=== PATIENT | female | born 1990 | race American Indian/Alaskan Native ===

== ENCOUNTER 2018-07-11 11:23 | Inpatient (IN) | payer OTHER ==
[~2018-07-11] VITALS: Ht 170.2 cm; Wt 91.2 kg
[2018-07-11] MEDS ORDERED: PRENATAL TABLE1 EAC2 PO (11:53)
== END 2018-07-13 11:53 | disposition home or self-care, planned readmission (81) | DRG 807 ==
LOC: OBS/DEL 11:23 → LDR 11:59 → OB/GYN 11:59
PROC: 10E0XZZ Delivery of Products of Conception, External Approach (ICD-10-PCS; principal; 2018-07-11)
PROC: 0UQGXZZ Repair Vagina, External Approach (ICD-10-PCS; 2018-07-11)
PROC: 10907ZC Drainage of Amniotic Fluid, Therapeutic from Products of Conception, Via Natural or Artificial Opening (ICD-10-PCS; 2018-07-11)
PROC: 4A1HXCZ Monitoring of Products of Conception, Cardiac Rate, External Approach (ICD-10-PCS; 2018-07-11)
DX: O71.4 Obstetric high vaginal laceration alone (principal); Z37.0 Single live birth; Z3A.39 39 weeks gestation of pregnancy

== ENCOUNTER 2021-08-12 14:40 | Outpatient (CLI) | payer OTHER ==
[~2021-08-12 14:40] MED LIST: PRENATAL TABLE1 EAC2 PO
== END 2021-08-12 16:15 | disposition home or self-care (01) ==
LOC: PRENATAL 14:40
PROVIDERS: ATTEND Obstetrics & Gynecology Maternal & Fetal Medicine
DX: O35.0XX1 Maternal care for (suspected) central nervous system malformation in fetus, fetus 1 (principal); O35.3XX1 Maternal care for (suspected) damage to fetus from viral disease in mother, fetus 1; O98.512 Other viral diseases complicating pregnancy, second trimester; O99.891 Other specified diseases and conditions complicating pregnancy; Z36.89 Encounter for other specified antenatal screening; Z3A.24 24 weeks gestation of pregnancy

== ENCOUNTER 2021-09-30 16:25 | Emergency (ER) | payer OTHER ==
[~2021-09-30] VITALS: Ht 170.2 cm; Wt 97.1 kg
[2021-09-30] MEDS ORDERED: ACID REDUCER20 M1 (16:55)
[2021-09-30] MEDS ORDERED: PEPCID AC20 MG (16:55)
[2021-09-30] MEDS ORDERED: RHINOCORT ALL8.43 ML (16:56)
[2021-09-30] MEDS ORDERED: CLARITIN10 M1 (16:56)
[2021-09-30] MEDS ORDERED: BUTALB-ACETAMI1 EACH (16:58)
[2021-09-30] MEDS ORDERED: AZELASTINE137 MCG/0. (16:59)
== END 2021-09-30 17:47 | disposition home or self-care (01) ==
LOC: ER 16:25
DX: O22.43 Hemorrhoids in pregnancy, third trimester (principal); Z3A.32 32 weeks gestation of pregnancy

== ENCOUNTER 2021-11-20 13:00 | Inpatient (IN) | payer OTHER ==
[~2021-11-20] VITALS: Ht 170.2 cm; Wt 101.6 kg
[~2021-11-20 13:00] MED LIST changes: +ACID REDUCER20 M1; +AZELASTINE137 MCG/0.; +BUTALB-ACETAMI1 EACH; +CLARITIN10 M1; +PEPCID AC20 MG; +RHINOCORT ALL8.43 ML
[2021-11-25] MEDS ORDERED: VISTARIL25 MG PO (18:55)
[2021-11-25] MEDS ORDERED: PRENATAL FORMU1 EAC1 PO (18:55)
== END 2021-11-28 13:45 | disposition home or self-care (01) | DRG 807 ==
LOC: SURG-SUITE 11-25 21:01 → LDR 11-25 21:01 → SURG-SUITE 11-26 01:13 → SURH 11-30 13:00
PROVIDERS: ADMIT Obstetrics & Gynecology; ATTEND Obstetrics & Gynecology
PROC: 10E0XZZ Delivery of Products of Conception, External Approach (ICD-10-PCS; principal; 2021-11-25)
PROC: 4A1HXCZ Monitoring of Products of Conception, Cardiac Rate, External Approach (ICD-10-PCS; 2021-11-25)
DX: O80 Encounter for full-term uncomplicated delivery (principal); Z37.0 Single live birth; Z3A.39 39 weeks gestation of pregnancy; Z20.822 Contact with and (suspected) exposure to COVID-19